=== PATIENT | male | born 1995 | race African-American/Black ===

== ENCOUNTER 2021-04-01 03:47 | Emergency (ER) | payer BC ==
[~2021-04-01] VITALS: Ht 190.5 cm; Wt 100.0 kg
[~2021-04-01 03:47] MED LIST: AMOX1TAB12 PO; IBUP-1222 PO; METO25TA35 PO
[2021-04-01 03:55] VITALS: BP 113/62
== END 2021-04-01 04:15 | disposition left against medical advice (07) ==
LOC: ED 04:09
DX: M54.2 Cervicalgia (principal); R06.02 Shortness of breath; Z53.21 Procedure and treatment not carried out due to patient leaving prior to being seen by health care provider

== ENCOUNTER 2021-05-19 06:13 | Emergency (ER) | payer BC ==
[~2021-05-19] VITALS: Ht 185.4 cm; Wt 92.4 kg
[2021-05-19 06:18] VITALS: BP 120/84
--- NOTE | 2021-05-19 09:17 | NUR ---
No answer when called for room from lobby.
--- NOTE | 2021-05-19 10:18 | NUR ---
No answer when called for room from lobby.
== END 2021-05-19 11:10 | disposition left against medical advice (07) ==
LOC: ED 11:00
DX: K08.89 Other specified disorders of teeth and supporting structures (principal); Z53.21 Procedure and treatment not carried out due to patient leaving prior to being seen by health care provider